=== PATIENT | male | born 1980 | race African-American/Black ===

== ENCOUNTER 2022-02-10 18:43 | Emergency (ER) | payer OTHER ==
[~2022-02-10] VITALS: Ht 175.3 cm; Wt 79.0 kg
[2022-02-10 18:49] VITALS: BP 139/68
[2022-02-10] MEDS ORDERED: T3 PO (20:45)
== END 2022-02-10 21:00 | disposition home or self-care (01) ==
LOC: ER 18:43
DX: L02.31 Cutaneous abscess of buttock (principal)
CPT/HCPCS: 99283

== ENCOUNTER 2022-04-09 07:25 | Emergency (ER) | payer BC, OTHER ==
[~2022-04-09 07:25] MED LIST: T3 PO
== END 2022-04-09 09:34 | disposition left against medical advice (07) ==
LOC: ER 07:25
DX: Z53.21 Procedure and treatment not carried out due to patient leaving prior to being seen by health care provider (principal)